=== PATIENT | female | born 1965 | race Caucasian/White ===

== ENCOUNTER → 2019-03-16 | Outpatient (CLI) | payer OTHER ==
--- NOTE | 2019-03-20 11:49 | PF ---
[address] [address] PULMONARY FUNCTION REPORT Name: KARLO GOLDBERG Room: [facility]#: [id number] Admission: 03/16/19 Attend Phys: Vicente Mercado MD Discharge: Date of : 69 Report #: [id number] THIS REPORT FOR: //name// CC: Edenilson Mercado REFERRING PHYSICIAN: Vicente Mercado MD/Edenilson Farfan DO TYPE OF STUDY: Pulmonary function test. SPIROMETRY: FEV1/FVC was 72% predicted. FEV1 was 1.41 liters at 56% predicted post bronchodilator with 22% improvement post bronchodilators. FVC 1.92 liters at 61% predicted. The FEF 25/75 was 26% predicted. Total lung capacity was 3.61 liters at 81% predicted and DLCO was 72% predicted. IMPRESSION: 1. The above spirometry demonstrated obstructive pulmonary defect of at least moderate degree with significant positive bronchodilator response. The obstructive defect mostly in a small airway disease. <ELECTRONICALLY SIGNED> By: Florencio Cortez MD 03/20/19 1149 0918 [id number] Cortez MD /nt
== END ==
LOC: M.PUL 03-02 14:00 → M.CT 03-02 14:00 → M.PUL 14:26
DX: R91.8 Other nonspecific abnormal finding of lung field (principal)

== ENCOUNTER 2019-08-14 14:39 | Inpatient (IN) | payer OTHER ==
[~2019-08-14] VITALS: Ht 154.9 cm; Wt 65.7 kg
[2019-08-14 14:45] VITALS: BP 131/88
[2019-08-14] MEDS ORDERED: TYLENOL EXTRA500 MG PO (15:00)
[2019-08-14] MEDS ORDERED: ANORO ELLIPTA1 EACH (15:01)
[2019-08-14] MEDS ORDERED: SLEEP AID50 MG PO (15:01)
[2019-08-14] MEDS ORDERED: CENTRUM ADULTS1 EACH PO (15:01)
[2019-08-14] MEDS ORDERED: LIPITOR10 MG PO (15:02)
[2019-08-14] MEDS ORDERED: ZYPREXA7.5 MG PO (15:02)
[2019-08-14] MEDS ORDERED: MINIVELLE1 EAC1 TOP (15:02)
[2019-08-14] MEDS ORDERED: PRILOSEC OTC20 MG PO (15:03)
[2019-08-14] MEDS ORDERED: CLONAZEPAM 0.50.5 M1 PO (15:03)
[2019-08-14] MEDS ORDERED: ZOLOFT50 M1 PO (15:03)
[2019-08-14] MEDS ORDERED: PROVERA5 MG PO (15:03)
[2019-08-14] MEDS ORDERED: ESKALITH300 MG PO (15:04)
[2019-08-14] MEDS ORDERED: MELATONIN10 M1 PO (15:04)
[2019-08-14] MEDS ORDERED: METFORMIN HCL500 M3 PO (15:05)
[2019-08-14 15:07] LABS: ABSOLUTE BASOPHILS 0.1 thou/uL (0.0-0.2); ABSOLUTE EOSINOPHILS 0.1 thou/uL (0.0-0.7); ABSOLUTE LYMPHOCYTES 2.3 thou/uL (0.8-5.3); ABSOLUTE MONOCYTES 0.7 thou/uL (0.0-1.2); ABSOLUTE NEUTROPHILS 4.8 thou/uL (1.6-8.1); BASOPHILS 0.7 %; EOSINOPHILS 1.8 %; HEMATOCRIT 43.9 % (37.0-47.0); HEMOGLOBIN 14.7 gm/dL (12.0-15.0); LYMPHOCYTES 28.6 %; MCHC 33.5 g/dL (28.0-37.0); MCV 104.3 fL (80.0-100.0); MONOCYTES 8.4 %; MPV 9.6 fl. (7.2-11.1); NUCLEATED RBCS 0 /100WBC; PLATELET COUNT* 229 thou/uL (150-400); POLYS 60.5 %; RBC 4.21 mil/uL (4.20-5.00); RDW-CV 14.8 % (10.5-14.5)
[2019-08-14 15:18] LABS: APTT 26.9 Seconds (25.0-31.3); PROTIME 10.1 Seconds (9.20-11.50)
[2019-08-14 15:31] LABS: CREATININE 1.1 mg/dL (0.6-1.3); POTASSIUM 4.3 mmol/L (3.5-5.1); TOTAL BILIRUBIN 0.3 mg/dL (<0.1-1.0); TOTAL PROTEIN 6.4 g/dL (6.4-8.2)
[2019-08-14 15:42] LABS: ALBUMIN 3.2 g/dL (3.4-5.0); CALCIUM 9.2 mg/dL (8.5-10.1)
[2019-08-14 15:46] LABS: URINE BILIRUBIN NEGATIVE (Negative); URINE BLOOD NEGATIVE (Negative); URINE CLARITY CLEAR; URINE COLOR YELLOW; URINE GLUCOSE-RANDOM NEGATIVE (Negative); URINE KETONES NEGATIVE (Negative); URINE LEUKOCYTES-REFLEX NEGATIVE (Negative); URINE NITRITE-REFLEX NEGATIVE (Negative); URINE PROTEIN NEGATIVE (Negative); URINE SPECIFIC GRAVITY <= 1.005 (1.005-1.030); URINE UROBILINOGEN 0.2 E.U./dl (0.2-1.0)
--- NOTE | 2019-08-14 18:34 | NUR ---
PT GIVEN TURKEY SANDWICH, PUDDING A COLA PER REQUEST AND REGULAR DIET ORDERS.
--- NOTE | 2019-08-14 19:10 | NUR ---
YANIV FIERRO (FAMILY) [phone]
[2019-08-14 19:35] VITALS: BP 111/74
[2019-08-14 20:00] VITALS: BP 137/92
[2019-08-15] VITALS (7 sets, daily range): BP systolic 101–140; BP diastolic 58–80
--- NOTE | 2019-08-15 07:18 | NUR ---
RECEIVED REPORT FROM TEACHER HEARING IMPAIREDMAXIMILIAN DEE AT 1930. PT ARRIVED TO UNIT AT 1999 VIA BED. PT VOICED NO COMPLAINTS AT START OF SHIFT. CHEMICAL SPRAYER IN PLACE, SINUS RHYTHM. PT ORIENTED TO ROOM AND CALL LIGHT. SCANT AMOUNT OF BRIGHT RED BLOOD OBSERVED ON TISSUE. PT OBSERVED TO HAVE EXTERNAL HEMORROIDS/IRRITATION TO RECTUM. HOURLY ROUNDING COMPLETED. CALL LIGHT WITHIN REACH. CONTINUES ON 6L O2 NC.
--- NOTE | 2019-08-15 08:58 | EKG ---
[place] [address] ELECTROCARDIOGRAM REPORT Name: KARLO GOLDBERG Room: [address] ADM IN .R.#: [id number] Admission: 08/14/19 Attend Phys: Laron Goff Discharge: Date of : 69 Report #: [id number] THIS REPORT FOR: //name// [facility] ED Test Date: 2019-08-14 Test Time: 15:01:34 Pat Name: KARLO GOLDBERG Department: Room: [facility] Gender: F Account Support Rep: : 1965 Requested By: Marcial Biggs Order Number: [id number] MD: Tien Rojas Measurements Intervals [place] Rate: 92 P: 79 [place]: 171 QRS: 58 QRSD: 82 T: 50 QT: 341 QTc: 422 Interpretive Statements Sinus rhythm Borderline T wave abnormalities, consider ischemia No previous ECG available for comparison Electronically Signed On 08-15-2019 8:57:49 [employer]OX [employer] by Tien Rojas [email or web address] <ELECTRONICALLY SIGNED> By: Tien Rojas MD, [facility] 08/15/19 0857 1501 1501 Tien Rojas MD, FACC /EPI
--- NOTE | 2019-08-15 11:15 | NUR ---
MET WITH PT, SPOUSE AND SON TO DISCUSS HOME SITUATION/DC PLANNING. PT LIVES WITH SPOUSE, CHILDREN AND GRANDCHILD. SHE IS NORMALLY INDEPENDENT AND ACTIVE. USES NO EQUIPMENT AND HASN'T HAD HH. PT DENIES ANY NEEDS AT THIS TIME OTHER THAN DERRICK, NURSE AWARE. WILL FOLLOW
[2019-08-15 12:00] LABS: MCHC 32.6 g/dL (28.0-37.0); MCV 107.2 fL (80.0-100.0); MPV 9.3 fl. (7.2-11.1); RBC 4.02 mil/uL (4.20-5.00); RDW-CV 15.1 % (10.5-14.5); WBC 14.5 thou/uL (4.0-11.0)
--- NOTE | 2019-08-15 12:01 | 2DMMODE ---
[place] [address] 2 D/M-MODE ECHOCARDIOGRAM Name: KARLO GOLDBERG Room: [address] IN [facility]#: [id number] Admission: 08/14/19 Attend Phys: Ozzy Kenny Discharge: Date of : 69 Date of Service: 08/15/19 1201 Report #: [id number] THIS REPORT FOR: //name// APPROVED REPORT Study performed: 08/15/2019 09:37:59 EXAM: Comprehensive 2D, Doppler, and color-flow Echocardiogram Patient Location: In-Patient Room #: [facility] Status: routine BSA: 1.55 HR: 96 bpm BP: 106/71 mmHg Rhythm: NSR Other Information Study Quality: Good Indications Congestive Heart Failure COPD Dyspnea 2D Dimensions IVSd: 11.37 (7-11mm) LVOT Diam: 18.80 (18-24mm) LVDd: 40.91 mm PWd: 8.16 (7-11mm) Ascending Ao: 32.92 (22-36mm) LVDs: 20.04 (25-40mm) Aortic Root: 29.64 mm Volumes Left Atrial Volume (Systole) LA ESV Index: 27.00 mL/m2 Aortic Valve AoV Peak Russell.: 2.27 m/s AO Peak Gr.: 20.56 mmHg LVOT Max P.79 mmHg AO Mean Gr.: 10.74 mmHg LVOT Mean P.17 mmHg LVOT Max V: 1.56 m/s AO V2 VTI: 33.32 cm LVOT Mean V: 1.06 m/s AZEEM (VTI): 2.50 cm2 LVOT V1 VTI: 29.97 cm Mitral Valve E/A Ratio: 0.78 [place] [address] 2 D/M-MODE ECHOCARDIOGRAM Name: KARLO GOLDBERG Room: [address] IN ..#: [id number] Admission: 08/14/19 Attend Phys: Ozzy Kenny Discharge: Date of : 69 Date of Service: 08/15/19 1201 Report #: [id number] MV Decel. Time: 141.24 ms MV E Max Russell.: 1.03 m/s MV PHT: 40.96 ms MVA (PHT): 5.37 cm2 TDI E/Lateral E': 7.36 E/Medial E': 10.30 Medial E' Russell.: 0.10 m/s Lateral E' Russell.: 0.14 m/s Pulmonary Valve PV Peak Russell.: 1.21 m/s PV Peak Gr.: 5.82 mmHg Tricuspid Valve RAP Estimate: 5.00 mmHg TR Peak Gr.: 55.22 mmHg RVSP: 60.00 mmHg PA Pressure: 60.00 mmHg Left Ventricle The left ventricle is normal size. There is normal LV segmental wall motion. There is normal left ventricular wall thickness. Left ventricular systolic function is normal. The left ventricular ejection fraction is within the normal range. LVEF is 65%. Grade I - abnormal relaxation pattern. Right Ventricle The right ventricle is normal size. The right ventricular systolic function is normal. Atria The left atrium size is normal. The right atrium size is normal. Aortic Valve Mild aortic valve sclerosis. No aortic regurgitation is present. There is no aortic valvular stenosis. Mitral Valve The mitral valve is normal in structure. There is no mitral valve regurgitation noted. No evidence of mitral valve stenosis. Tricuspid Valve The tricuspid valve is normal in structure. Mild tricuspid regurgitation. Moderate pulmonary hypertension[place] [address] 2 D/M-MODE ECHOCARDIOGRAM Name: KARLO GOLDBERG Room: [address]#: [id number] Admission: 08/14/19 Attend Phys: Ozzy Kenny Discharge: Date of : 69 Date of Service: 08/15/19 1201 Report #: [id number] The pulmonary valve is normal in structure. Trace pulmonic regurgitation. Great Vessels The aortic root is normal in size. IVC is normal in size and collapses >50% with inspiration. Pericardium There is no pericardial effusion. <Conclusion> The left ventricle is normal size. There is normal left ventricular wall thickness. Left ventricular systolic function is normal. The left ventricular ejection fraction is within the normal range. LVEF is 65%. Grade I - abnormal relaxation pattern. The right ventricle is normal size. The left atrium size is normal. Mild aortic valve sclerosis. No aortic regurgitation is present. There is no aortic valvular stenosis. The mitral valve is normal in structure. The tricuspid valve is normal in structure. Mild tricuspid regurgitation. Moderate pulmonary hypertension. IVC is normal in size and collapses >50% with inspiration. There is no pericardial effusion. There is normal LV segmental wall motion. <ELECTRONICALLY SIGNED> By: Edenilson Rangel MD, FACC 08/15/19 120 120 00 Edenilson Rangel MD, FACC /INF
--- NOTE | 2019-08-15 18:51 | NUR ---
ASSUMED PT CARE AT 0730. ASSESSMENT COMPLETED CHARTED. ABLE TO MAKE NEEDS KNOWN. RESTING IN BED AT THIS TIME. UP AD ALISSA YET STILL CALLS OUT TO ASK TO USE RESTROOM. REMINDS PT TO KEEP O2 ON WHEN GETTING OUT OF BED DUE TO O2 DROPPING. C/O HEADACHE EARLIER IN SHIFT AND GAVE PRN MEDS. PT CALLS OUT INCESSANTLY FOR WATER, MILK, AND CHIPS. PT HAS BEEN CROCHETING FOR STRESS RELIEF. FAMILY AT BEDSIDE MOST OF THE DAY. RECIVED PAPERWORK FOR HUBBY BEING GUARDIAN. WILL CONTINUE TO MONITOR.
[2019-08-16] VITALS: BP 98/64
[2019-08-16 04:00] VITALS: BP 130/70
--- NOTE | 2019-08-16 06:44 | NUR ---
PT A+OX4. MANIC BUT FOCUSED ON CROCHETING BLANKET. ANXIETY UNDER CONTROL WITH PRN MEDICATIONS AND COPING SKILLS. CALL LIGHT IN REACH. HOURLY ROUNDING FOR SAFETY.
[2019-08-16 07:50] VITALS: BP 120/78
[2019-08-16 11:32] VITALS: BP 110/75
[2019-08-16] MEDS ORDERED: IPRAT-ALBUT 0.5-3 ML INH (12:48)
[2019-08-16] MEDS ORDERED: MEDROL DOSPAK21 TA1 PO (12:48)
[2019-08-16] MEDS ORDERED: HYDROCHLOROTH12.5 M2 PO (12:51)
[2019-08-16 13:56] VITALS: BP 110/75
[2019-08-16 14:13] VITALS: BP 110/75
--- NOTE | 2019-08-16 14:48 | NUR ---
ASSUMED PT CARE REPORT RECEIVED FROM NURSE PT IS AOX4 PLEASANT. ON 4 L NC. NO COMPLAINT. VSS. DISCHARGE ORDERED. OXYGEN NEEDED TO GO HOME 3 L NC. SHELL MACHINE OPERATOR ORDERED. O2. PT IN ROOM AWAITING FOR DELIVERY OF 02 TANK. DC INSTRUCTION GIVEN . IV LINE OUT. HEART MONITOR RETRIEVED.
--- NOTE | 2019-08-16 14:52 | NUR ---
ORDER TO ARRANGE O2 FOR PT. MET WITH PT AND SPOUSE, ONLY CONCERN FOR O2 WAS THAT IT BE SET UP WITH AN AGENCY IN NETWORK. CALLED AND SET UP THRU [facility]. HE WILL DELIVER TANK TO ROOM AND REST OF EQUIPMENT WILL BE DELIVERED TO HOME LATER TODAY
--- NOTE | 2019-08-16 15:48 | NUR ---
PT LEFT FLOOR AT 1545 ACCOMPANIED BY TRANSPORTER ON WHEELCHAIR.
--- NOTE | 2019-08-16 16:02 | CON ---
[address] [address] CONSULTATION Name: KARLO GOLDBERG Room: [address] IN [facility]#: [id number] Admission: 08/14/19 Attend Phys: Laron Goff Discharge: Date of : 69 Report #: [id number] THIS REPORT FOR: //name// CC: Vicente Kenny DICTATED BY: Milvia Vasquez [facility] DATE OF SERVICE: 08/15/2019 Please note at the time of this dictation, the patient was seen and physically examined by myself. REASON FOR CONSULTATION: Rectal bleeding. HISTORY OF PRESENT ILLNESS: This is a 54-year-old female who presented to the Emergency Room with rectal bleeding that she was reporting blood on the toilet paper every time that she wiped. In further investigating her complaints, she states when she would wipe, she would still have blood, but it was not associated with a bowel movement. The patient underwent a colonoscopy on Tuesday that showed no polyps, essentially normal, repeat in 10 years with no hemorrhoids that were noted. She was supposed to have an EGD done at that time for some difficulty swallowing; however, her O2 sats were too low and that did not occur. When she came to the Emergency Room, she had a low oxygen content of around 80% at that time. She has been taking medicine for reflux because of GERD and recently quit taking ibuprofen about a week prior too because of her kidney function. ALLERGIES: SULFA and TRIMETHOPRIM. MEDICATIONS FROM HOME: 1. Tylenol. 2. Sleep aid. 3. Centrum. 4. Anoro Ellipta. 5. Lipitor. 6. Xifaxan. 7. Minivelle. 8. Provera. 9. Prilosec. 10. Zoloft. 11. Clonazepam. 12. [place]. 13. Melatonin. 14. [place] [address] CONSULTATION Name: KARLO GOLDBERG Room: [address]#: [id number] Admission: 08/14/19 Attend Phys: Laron Goff Discharge: Date of : 69 Report #: [id number] PAST MEDICAL HISTORY: 1. Bipolar with manic depressive and psychotic tendencies. 2. She has had an Imodium overdose in 2016. 3. Nicotine dependency. 4. Chronic obstructive pulmonary disease. 5. Hyperlipidemia. 6. Gastroesophageal reflux disease. 7. Acute kidney injury. 8. History of alcohol abuse. PAST SURGICAL HISTORY: Negative. FAMILY HISTORY: Sister with alcoholism. SOCIAL HISTORY: She continues to smoke cigarettes. History of alcohol abuse. Denies any illegal drug use. REVIEW OF SYSTEMS: Twelve-point review of systems is essentially negative except what is mentioned in the HPI. PHYSICAL EXAMINATION: VITAL SIGNS: Temperature 36.7, pulse 111, respirations 18, blood pressure 108/71. She is currently on 2 liters of oxygen and her sats are over 90%. LABORATORY DATA: Hemoglobin on admission is 14.7, white count is 8, platelets 229. PT 10. INR is 1. GFR is 52. CTA of the chest, negative for any pulmonary embolism. Chest x-ray showed some mild cardiomegaly with diffuse interstitial pulmonary opacities. CT of the abdomen and pelvis shows a hyperdense material on post-contrast images seen within the anus, possibly hemorrhage from a hemorrhoid. Also a hyperdense lesion in the left aspect of the cervix, likely hemorrhagic nabothian cyst along with an ovarian cyst noted. Otherwise, no abnormal contrast extravasation seen within the colon. IMPRESSION: 1. Rectal bleeding with wiping. 2. Rectal pain. 3. Shortness of air. 4. History of chronic obstructive pulmonary disease. 5. Hemorrhagic nabothian cyst. PLAN: [place] [address] CONSULTATION Name: KARLO GOLDBERG Room: [address] IN [facility]#: [id number] Admission: 08/14/19 Attend Phys: Laron Goff Discharge: Date of : 69 Report #: [id number] 1. Monitor H and H. 2. Consider a pelvic ultrasound. 3. Further recommendations to be made once Dr. Rock sees the patient later today. Thank you for allowing me to participate in this patient's care. Please do not hesitate to call with any questions in regards to this consult. Patient with significant history of smoking was seen by me yesterday for elective outpatient EGD and colonoscopy for dysphagia and screening respectively. However, she was sinificantly hypoxic on room air with her saturation in the 70s with minimal exertion. Therefore, a decision was made to proceed with colonsocopy only and EGD was to be scheduled after she had an outpatient pumonary evaluation. The colonoscopy was unremarkable. She claimed she noted significant rectal bleeding but here appears to be no blood in the rectal vault. Hemoglobin appears stable as well. No plans for repeat endoscopic evaluation. Otherwise agree with above assessment and plan by Milvia Vasquez. <ELECTRONICALLY SIGNED> By: Contreras Rock MD 08/16/19 1602 1134 [id number] Rock MD /nt
== END 2019-08-16 15:45 | disposition home or self-care (01) | DRG 291 ==
LOC: M.ERS 14:39 → M.2W 16:58 → M.TBA-ER 16:58 → M.2W 20:01
PROVIDERS: Family Medicine; Nurse Practitioner Adult Health; ADMIT Internal Medicine
DX: I50.33 Acute on chronic diastolic (congestive) heart failure (principal); J96.01 Acute respiratory failure with hypoxia; J44.1 Chronic obstructive pulmonary disease with (acute) exacerbation; K62.5 Hemorrhage of anus and rectum; E44.0 Moderate protein-calorie malnutrition; F10.10 Alcohol abuse, uncomplicated; E78.5 Hyperlipidemia, unspecified; F31.9 Bipolar disorder, unspecified; K21.9 Gastro-esophageal reflux disease without esophagitis; F17.210 Nicotine dependence, cigarettes, uncomplicated; E04.1 Nontoxic single thyroid nodule; E11.65 Type 2 diabetes mellitus with hyperglycemia; I27.20 Pulmonary hypertension, unspecified; D75.89 Other specified diseases of blood and blood-forming organs; Z88.2 Allergy status to sulfonamides; Z88.8 Allergy status to other drugs, medicaments and biological substances; Z81.1 Family history of alcohol abuse and dependence; Z68.27 Body mass index [BMI] 27.0-27.9, adult; Z79.899 Other long term (current) drug therapy